=== PATIENT | male | born 1940 | race Caucasian/White ===

== ENCOUNTER 2016-10-01 19:25 | Emergency (ER) | payer OTHER ==
[~2016-10-01] VITALS: Ht 170.2 cm; Wt 72.6 kg
[2016-10-01 20:28] LABS: Basophils # (auto) 0.1 uL; Basophils % (auto) 0.8 % (0.0-2.0); Eosinophils # (auto) 0.2 uL; Eosinophils % (auto) 2.2 % (0.0-7.0); Hematocrit 42.7 % (41.0-53.0); Hemoglobin 13.8 g/dL (13.5-17.5); Lymphocytes # (auto) 1.5 uL; Lymphocytes % (auto) 20.5 % (10.0-50.0); Mean Corpuscular Hemoglobin 29.2 pg (28.0-32.0); Mean Corpuscular Hgb Conc. 32.4 g/dL (32.0-36.0); Mean Corpuscular Volume 90.1 fL (80.0-100.0); Mean Platelet Volume 8.3 fL (7.4-10.4); Monocytes # (auto) 0.5 uL; Monocytes % (auto) 6.5 % (0.0-12.0); Neutrophils # (auto) 5.2 uL; Platelet Count (auto) 195 10^3/uL (140-450); Red Cell Distribution Width 14.7 % (11.6-16.0); White Blood Cell 7.4 10^3/uL (4.4-10.8)
[2016-10-01] MEDS ORDERED: LORazepam 2MG/ML-1ML VIAL IV ONE (20:30)
[2016-10-01 20:42] LABS: Albumin 3.8 g/dL (3.4-5.0); Anion Gap 7 (5-15); Aspartate Aminotransferase 18 U/L (15-37); BUN/Creatinine Ratio 25.4; Blood Urea Nitrogen 18 mg/dL (7-18); Calcium 8.7 mg/dL (8.5-10.1); Carbon Dioxide 27 mmol/L (21-32); Chloride 106 mmol/L (98-107); GFR African American 139 mL/min; GFR Non-African American 115 mL/min; Glucose 96 mg/dL (74-106); Magnesium 2.3 mg/dL (1.6-2.6); Potassium 4.1 mmol/L (3.5-5.1); Salicylate < 1.7 mg/dL (2.8-20.0); Sodium 140 mmol/L (136-145)
[2016-10-01 20:45] LABS: Alkaline Phosphatase 72 U/L (45-117); Bilirubin, Total 0.5 mg/dL (0.2-1.0); Total Protein 7.5 g/dL (6.4-8.2)
[2016-10-01 21:13] LABS: Acetaminophen < 2.0 ug/mL (10-30)
[2016-10-01 21:31] LABS: Urine RBC None Seen /hpf (0 - 3)
[2016-10-01 21:35] VITALS: BP 143/64
[2016-10-01 21:46] LABS: Urine Bilirubin Negative (Negative); Urine Blood Negative /uL (Negative); Urine Color Yellow (Yellow); Urine Glucose Normal (Normal); Urine Ketone Negative (Negative); Urine Nitrite Negative (Negative); Urine Urobilinogen Normal (Negative); Urine pH 5.5 (5.0-8.0)
== END 2016-10-02 06:57 | disposition home or self-care (01) ==
LOC: EDBD 19:25 → ER 19:27
DX: F41.9 Anxiety disorder, unspecified (principal); R41.0 Disorientation, unspecified; F31.9 Bipolar disorder, unspecified
CPT/HCPCS: 36415; 70450; 80053; 80164; 80320; 80329; 81001; 82962; 83735; 85025; 96374; 99285; G0434; J2060